=== PATIENT | female | born 1985 | race Caucasian/White ===

== ENCOUNTER → 2017-06-25 | Outpatient (CLI) | payer BC, OTHER ==
[~2017-06-25] MED LIST: ACETAMINOPHEN 325 MG TAB As Ordered ONE
[2017-06-25 14:08] LABS: GLUCOSE CSF 52 MG/DL (40-75)
[2017-06-25 14:24] LABS: APPEARANCE, CSF CLEAR (CLEAR); COLOR, CSF COLORLESS (COLORLESS); CSF DIFF IF INDICATED? NO (NO); CSF TUBE# CELL CNT TUBE 1
[2017-06-25 15:02] LABS: CSF GROUP B STREP NEGATIVE (NEGATIVE); CSF H. INFLUENZA NEGATIVE (NEGATIVE); CSF N MENINGITIDIS ACYW135 NEGATIVE (NEGATIVE); CSF STREP PNUEMO NEGATIVE (NEGATIVE)
--- NOTE | 2017-06-25 16:08 | REP ---
Procedure: For guidance for lumbar puncture. History: Pseudo tumor cerebri, headache/change in vision The procedure was performed under the direct supervision of Dr. Guillen. The risks and benefits of the procedure were explained to the patient and informed consent was obtained. The L3-4 interspace was localized using fluoroscopic guidance. The skin was prepped and draped in a sterile fashion. 1% lidocaine was used as a local anesthetic. Using fluoroscopic guidance a 22-gauge spinal needle was inserted and advanced into the thecal sac. opening pressure measured 31 cm H2O. 36 ml of spinal fluid was withdrawn and sent to lab. Closing pressure measured less than 12 cm H2O The the patient tolerated the procedure well and there were no immediate complications. 8 seconds of fluoro time was utilized for this procedure. Reviewed by KALA Jordan 06/25/2017 03:14 PSigned by Jaison Guillen MD 06/25/2017 03:59 P
== END ==
LOC: M RADPRO 11:28
PROVIDERS: ATTEND Neurological Surgery
DX: G93.2 Benign intracranial hypertension (principal); Z88.5 Allergy status to narcotic agent; Z79.899 Other long term (current) drug therapy; Z79.1 Long term (current) use of non-steroidal anti-inflammatories (NSAID)

== ENCOUNTER → 2017-07-03 | Outpatient (CLI) | payer BC, OTHER ==
[2017-07-03 13:28] LABS: GLUCOSE CSF 55 MG/DL (40-75)
[2017-07-03 13:57] LABS: CSF DIFF IF INDICATED? NO (NO)
[2017-07-03 14:03] LABS: APPEARANCE, CSF CLEAR (CLEAR); COLOR, CSF COLORLESS (COLORLESS); CSF TUBE# CELL CNT TUBE 3
[2017-07-03 14:23] LABS: CSF GROUP B STREP NEGATIVE (NEGATIVE); CSF H. INFLUENZA NEGATIVE (NEGATIVE); CSF N MENINGITIDIS ACYW135 NEGATIVE (NEGATIVE); CSF STREP PNUEMO NEGATIVE (NEGATIVE)
--- NOTE | 2017-07-03 17:15 | REP ---
Procedure: For guidance for lumbar puncture. History: Pseudotumor Cerebri The procedure was performed under the direct supervision of Dr. Gulilen. The risks and benefits of the procedure were explained to the patient and informed consent was obtained. The L3-4 interspace was localized using fluoroscopic guidance. The skin was prepped and draped in a sterile fashion. 1% lidocaine was used as a local anesthetic. Using fluoroscopic guidance a 22-gauge spinal needle was inserted and advanced into the thecal sac. Opening pressure measured 24 cm of H2O . 25 ml of spinal fluid was withdrawn and sent to lab. Closing pressure measured less than 12 cm of H2O. The the patient tolerated the procedure well and there were no immediate complications. After the appropriate amount of monitored convalescence the patient was discharged from the department. 5 seconds of fluoro time was utilized for this procedure. Reviewed by KALA Jordan 07/03/2017 04:37 PSigned by Jaison Guillen MD 07/03/2017 05:06 P
== END ==
LOC: M RADPRO 11:08
PROVIDERS: ATTEND Neurological Surgery
DX: G93.2 Benign intracranial hypertension (principal); K50.90 Crohn's disease, unspecified, without complications; E03.9 Hypothyroidism, unspecified; M19.90 Unspecified osteoarthritis, unspecified site; F41.9 Anxiety disorder, unspecified; Z79.891 Long term (current) use of opiate analgesic; Z79.899 Other long term (current) drug therapy; Z88.5 Allergy status to narcotic agent